=== PATIENT | female | born 1995 | race Caucasian/White ===

== ENCOUNTER → 2018-01-03 | Emergency (ER) | payer OTHER ==
[~2018-01-03] VITALS: Ht 154.9 cm; Wt 49.9 kg
[~2018-01-03] MED LIST: IV NS 0.9% 1,000 ML BAG IV ONE
[2018-01-03 01:18] VITALS: BP 115/74
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
--- NOTE | 2018-01-03 02:00 | NUR ---
DR. MILLER AT BEDSIDE TO EXAMINE PT.
--- NOTE | 2018-01-03 02:25 | NUR ---
URINE SPECIMEN COLLECTED. 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 PT. SAID SHE NEEDS TO GO TO HER CAR FIRST SO SHE CAN LEAVE ALL HER BELONGINGS THERE. NO IV INSERTION DONE AT THIS TIME.
--- NOTE | 2018-01-03 03:10 | NUR ---
Patient eloped from facility. ER MD notified.
== END ==
LOC: ER 00:59
DX: K59.00 Constipation, unspecified (principal); F11.20 Opioid dependence, uncomplicated; F17.200 Nicotine dependence, unspecified, uncomplicated; Z98.890 Other specified postprocedural states; Z90.89 Acquired absence of other organs
CPT/HCPCS: 99281; A4606; J7030; Z7610; Z7502

== ENCOUNTER 2021-10-24 03:59 | Emergency (ER) | payer OTHER ==
[~2021-10-24] VITALS: Ht 152.4 cm; Wt 61.2 kg
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
--- NOTE | 2021-10-24 04:39 | NUR ---
FRIEND [phone]
--- NOTE | 2021-10-24 05:11 | NUR ---
RAD AT BED SIDE
[2021-10-24] MEDS ORDERED: NAPR-1192 PO (05:52)
[2021-10-24 05:57] VITALS: BP 139/69
== END 2021-10-24 05:57 | disposition home or self-care (01) ==
LOC: ER 04:02
DX: M79.89 Other specified soft tissue disorders (principal); M79.662 Pain in left lower leg; F17.200 Nicotine dependence, unspecified, uncomplicated; Z90.89 Acquired absence of other organs; Z98.890 Other specified postprocedural states; Z60.2 Problems related to living alone
CPT/HCPCS: 73564-TC; 93971-TC